=== PATIENT | male | born 1950 | race Caucasian/White ===

== ENCOUNTER 2017-04-24 08:00 | Outpatient (CLI) | payer MEDICARE ==
--- NOTE | 2017-04-24 11:09 | ULT ---
ABDOMINAL AORTIC ULTRASOUND: History: Aortic screening exam. FINDINGS: Real-time images of the abdominal aorta show a normal caliber aorta. Prostate measures 1.9 cm, the m id portion measures 1.6 and distally 1.5 cm. IMPRESSION: No evidence of aortic aneurysm. POS: [facility]
== END 2017-04-24 08:01 | disposition home or self-care (01) ==
LOC: NAV ULT 08:00
PROVIDERS: ATTEND Family Medicine
DX: Z13.6 Encounter for screening for cardiovascular disorders (principal)
CPT/HCPCS: 76775

== ENCOUNTER 2024-06-22 12:43 | Outpatient (CLI) | payer MEDICARE | END 2024-06-22 12:44 | disposition home or self-care (01) | LOC: NAV RAD 12:43 | PROVIDERS: ATTEND Family Medicine | DX: M25.551 Pain in right hip (principal); M25.561 Pain in right knee; M25.571 Pain in right ankle and joints of right foot; M77.31 Calcaneal spur, right foot; M19.071 Primary osteoarthritis, right ankle and foot; M25.774 Osteophyte, right foot ==